=== PATIENT | male | born 1965 | race Two or more races ===

== ENCOUNTER 2017-03-03 23:31 | Emergency (ER) | payer OTHER ==
[~2017-03-03] VITALS: Ht 167.6 cm; Wt 70.3 kg
[2017-03-03 23:49] VITALS: BP 154/94
--- NOTE | 2017-03-04 00:02 | Emergency Room Report ---
History of Present Illness General Chief Complaint: Laceration Source: Patient, Medical Record Present Illness HPI Is a 51-year-old male who is right-hand dominant. 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 He was cleaning up the table clot in there was a broken glass that was folded inside of cough. When he opened it up he sustained a laceration to the right thumb. Is a small avulsion. Could not stop the bleeding. This occur few hours ago. Denies any other injury. Minimal pain. Tetanus is up-to-date. Allergies: Coded Allergies: No Known Allergies (Verified Allergy, Mild, 11/15/09) Patient History Past Medical History: see triage record, old chart reviewed Past Surgical History: none Pertinent Family History: none Social History: Denies: smoking Immunizations: UTD Reviewed Nursing Documentation: PMH: Agreed, PSxH: Agreed Nursing Documentation-PMH Past Medical History: No History, Except For Hx Cardiac Problems: Yes - CP 2009 Hx Hypertension: Yes Hx Gastrointestinal Problems: Yes - Pandicitis (remove 2000) Review of Systems Eye: Denies: blurred vision, eye pain ENT: Denies: ear pain, nose congestion, throat swelling Respiratory: Denies: cough, shortness of breath Cardiovascular: Denies: chest pain, palpitations Gastrointestinal: Denies: abdominal pain, diarrhea, nausea, vomiting Musculoskeletal: Denies: back pain, joint pain Skin: Denies: rash Neurological: Denies: headache, numbness Endocrine: Denies: increased thirst, increased urine Hematologic/Lymphatic: Denies: easy bruising All Other Systems: negative except mentioned in HPI Physical Exam Vital Signs Date Time Temp Pulse Resp B/P Pulse Ox O2 Delivery O2 Flow Rate FiO2 03/03/17 23:38 97.9 72 18 159/104 96 Room Air vitals with hypertension Sp02 EP Interpretation: reviewed, normal General Appearance: well appearing, no apparent distress, alert Head: normocephalic, atraumatic Eyes: bilateral eye EOMI, bilateral eye PERRL ENT: hearing grossly normal, normal pharynx Neck: full range of motion, supple, no meningismus Respiratory: chest non-tender, lungs clear, normal breath sounds Cardiovascular #1: regular rate, rhythm, no murmur Gastrointestinal: normal bowel sounds, non tender, no mass, no organomegaly, no bruit, non-distended Musculoskeletal: back normal, gait/station normal, normal range of motion, other - 3 mm avulsion to the right thumb. Active oozing of blood. Full range of motion of MCP and DIP joint. Sensation normal. No foreign body. Neurologic: alert, oriented x3 Psychiatric: mood/affect normal Skin: warm/dry Procedures Laceration/Wound Repair Laceration/Wound Repair : Consent: Verbal Wound Location: upper extremity Wound's Depth, Shape: superficial - 0. Wound Length (cm): 0 Wound Explored: clean Patient Tolerated: Well Complications: None Progress area cleaned. I put a small amount of lidocaine on gauze and had patient felt pressure. Does help with the bleeding. Afterward I put a small Surgicel and place pressure dressing. No active bleeding. Patient tolerated procedure without a problem. Medical Decision Making Diagnostic Impression: Primary Impression: Avulsion of skin of finger Qualified Codes: S61.209A - Unspecified open wound of unspecified finger without damage to nail, initial encounter ER Course Patient was small skin avulsion. Bleeding controlled. Nothing to be sutured. We'll discharge him. Last Vital Signs Date Time Temp Pulse Resp B/P Pulse Ox O2 Delivery O2 Flow Rate FiO2 03/03/17 23:49 97.9 78 18 154/94 96 Room Air Status: improved Disposition: HOME, SELF-CARE Condition: Stable Patient Instructions: Nonsutured Laceration Care Additional Instructions: Follow up with Worker's Comp.'s as needed. Return if symptom worsen. hold pressure bleeding. YASMEEN TOM M.D. Mar 04, 2017 00:02
[2017-03-04 00:39] VITALS: BP 154/94
== END 2017-03-04 00:39 | disposition home or self-care (01) ==
LOC: EMR 23:50
DX: S61.011A Laceration without foreign body of right thumb without damage to nail, initial encounter (principal); W25.XXXA Contact with sharp glass, initial encounter; Y92.511 Restaurant or cafe as the place of occurrence of the external cause; Y99.0 Civilian activity done for income or pay; I10 Essential (primary) hypertension

== ENCOUNTER 2018-07-23 22:21 | Emergency (ER) | payer OTHER ==
[~2018-07-23] VITALS: Ht 167.6 cm; Wt 71.2 kg
--- NOTE | 2018-07-23 22:45 | NUR ---
ED Nurse Note: patient walked into ED c/o of right elbow pain, patient states that he was pulling a food warmer turned around and collided his arm with a wall. patient complains of 10/10 pain. patient is alert and oriented x4, ambulatory with a steady gait, VSS
[2018-07-23] MEDS ORDERED: FELODIPINE ER2.5 MG PO (22:48)
[2018-07-23 22:52] VITALS: BP 152/68
--- NOTE | 2018-07-23 22:58 | Emergency Room Report ---
History of Present Illness General Chief Complaint: Upper Extremity Injury Source: Patient Present Illness [facility] This is a 52-year-old male who is right-hand dominant. He presents with chief complaint of right elbow pain. Onset was acute and occurred 5 days ago. He was at work and was lifting something up and turn around hit his elbow on the corner of his work area. Since then his been hurting. Worse with movement of his fingers and twisting of his arm. Worse with movement of his elbow. Has some swelling to that area. No nausea no vomiting. No fever chills. No other injury. Pain is 8 out of 10. Allergies: Coded Allergies: No Known Allergies (Verified Allergy, Mild, 11/15/09) Patient History Past Medical History: see triage record, old chart reviewed Past Surgical History: none Pertinent Family History: none Social History: Denies: smoking Immunizations: other Reviewed Nursing Documentation: PMH: Agreed; PSxH: Agreed Nursing Documentation-PMH Past Medical History: No History, Except For Hx Cardiac Problems: Yes - CP 2009 Hx Hypertension: Yes Hx Gastrointestinal Problems: Yes - Pandicitis (remove 2000) Review of Systems Eye: Denies: eye pain, blurred vision ENT: Denies: ear pain, nose congestion, throat swelling Respiratory: Denies: cough, shortness of breath Cardiovascular: Denies: chest pain, palpitations Gastrointestinal: Denies: abdominal pain, diarrhea, nausea, vomiting Musculoskeletal: Reports: joint pain; Denies: back pain Skin: Denies: rash Neurological: Denies: headache, numbness Endocrine: Denies: increased thirst, increased urine Hematologic/Lymphatic: Denies: easy bruising All Other Systems: negative except mentioned in HPI Physical Exam Vital Signs Date Time Temp Pulse Resp B/P (MAP) Pulse Ox O2 Delivery O2 Flow Rate FiO2 07/23/18 22:39 98.1 68 14 125/67 99 vitals normal Sp02 EP Interpretation: reviewed, normal General Appearance: well appearing, no apparent distress, alert Head: normocephalic, atraumatic Eyes: bilateral eye PERRL, bilateral eye EOMI ENT: hearing grossly normal, normal pharynx Neck: full range of motion, supple, no meningismus Respiratory: chest non-tender, lungs clear, normal breath sounds Cardiovascular #1: regular rate, rhythm, no murmur Gastrointestinal: normal bowel sounds, non tender, no mass, no organomegaly, no bruit, non-distended Musculoskeletal: back normal, gait/station normal, normal range of motion, tender - Right elbow: Tenderness over the olecranon area. Decreased range of motion because of the pain. Sensation normal. No ecchymosis. Mild swelling. Neurologic: alert, oriented x3 Psychiatric: mood/affect normal Skin: warm/dry Medical Decision Making Diagnostic Impression: Primary Impression: Contusion of right elbow, initial encounter ER Course Patient with soft tissue injury from trauma. No fracture or dislocation. We' ll discharge home. Other X-Ray Diagnostic Results Other X-Ray Diagnostic Results : X-Ray ordered: X-rays right elbow # of Views/Limited Vs Complete: 3 View Indication: Pain EP Interpretation: Yes Interpretation: no dislocation, no soft tissue swelling, no fractures Impression: No acute disease Electronically Signed by: Ajay Borjas MD Last Vital Signs Date Time Temp Pulse Resp B/P (MAP) Pulse Ox O2 Delivery O2 Flow Rate FiO2 07/23/18 22:39 98.1 68 14 125/67 99 Status: improved Disposition: HOME, SELF-CARE Condition: Stable Scripts Ibuprofen* (MOTRIN*) 600 Mg Tablet 600 MG ORAL THREE TIMES A DAY, #30 TAB 0 Refills Prov: Ajay Borjas MD 07/23/18 Additional Instructions: Follow-up with your doctor in 7 days. Return if worse. Ajay Borjas MD Jul 23, 2018 22:58
[2018-07-23] MEDS ORDERED: IBUPROFEN600 MG ORAL (23:15)
[2018-07-23 23:25] VITALS: BP 143/72
--- NOTE | 2018-07-23 23:25 | NUR ---
ED Nurse Note: patient is being discharged from ED alert and oriented x4, ambulatory with a steady gait, VSS. patient acknowledged the need to follow up with PMD within a week if symptoms dont improve. Id band removed, all belongings sent home with patient, prescriptions in hand
--- NOTE | 2018-07-24 11:36 | Diagnostic Imaging Report ---
Indication: Elbow pain Findings: 3 views of the right elbow were obtained. No acute fractures, malalignment, erosions or periostitis are identified. Bone mineralization is within normal limits. Soft tissues are unremarkable. Impression: Negative examination of the elbow.
== END 2018-07-23 23:25 | disposition home or self-care (01) ==
LOC: EMR 23:00
DX: S50.01XA Contusion of right elbow, initial encounter (principal); W22.8XXA Striking against or struck by other objects, initial encounter; Y92.89 Other specified places as the place of occurrence of the external cause; Y99.0 Civilian activity done for income or pay; I10 Essential (primary) hypertension
CPT/HCPCS: 99283